=== PATIENT | female | born 1945 | race Caucasian/White ===

== ENCOUNTER 2017-06-06 07:01 | Day surgery (SDC) | payer MEDICARE, OTHER ==
[~2017-06-06] VITALS: Ht 152.4 cm; Wt 60.9 kg
[~2017-06-06 07:01] MED LIST: ASPI81 PO; BENA20 PO; FAMO20 PO; GABA-531 PO; GLIP5 PO; INSLAN SQ; LINA5TAB PO; SIMV-260 PO; SODIUM CHLORIDE 0.9% 0 ML IV ONE; SODIUM CHLORIDE 0.9% 1,000 ML IV ONE
[2017-06-06] MEDS ORDERED: LIDOCAINE HCL 4% 50 ML SOLUTION TP ONE (07:02)
[2017-06-06] MEDS ORDERED: BENZOCAINE 20% 50 MCG/SPRAY 57 GM TP ONE (07:02)
[2017-06-06] MEDS ORDERED: ALBUTEROL SULFATE 2.5 MG/0.5 ML NEB SOLUTION NEB ONE (07:02)
[2017-06-06] MEDS ORDERED: LIDOCAINE HCL 2% 5 ML JELLY TP ONE (07:02)
[2017-06-06] MEDS ORDERED: SODIUM CHLORIDE 0.9% 1,000 ML IV ONE (07:18)
[2017-06-06] MEDS ORDERED: MIDAZOLAM HCL 2 MG/2 ML VIAL ONE (07:43)
[2017-06-06] MEDS ORDERED: FentaNYL CITRATE-PF 100 MCG/2 ML VIAL ONE (07:43)
[2017-06-06 08:12] LABS: GLUCOSE,POINT OF CARE 176 MG/DL (70-110)
[2017-06-06] MEDS ORDERED: MethylPREDNISolone SOD SUCC 125 MG/2 ML VIAL IVP ONE (08:30)
[2017-06-06] MEDS ORDERED: MethylPREDNISolone SOD SUCC 125 MG/2 ML VIAL ONE (09:15)
[2017-06-06] MEDS ORDERED: OXYGEN THERAPY IH SCH (20:00)
== END 2017-06-06 10:25 | disposition home or self-care (01) ==
LOC: SURGERY 07:01
PROVIDERS: ATTEND Internal Medicine Critical Care Medicine
DX: J38.4 Edema of larynx (principal); B37.0 Candidal stomatitis; E11.9 Type 2 diabetes mellitus without complications; Z79.01 Long term (current) use of anticoagulants; Z79.4 Long term (current) use of insulin; Z90.710 Acquired absence of both cervix and uterus
CPT/HCPCS: 31623; 31624; 71010; 82962; 87015 ×2; 87070; 87101; 87205; 87220; 88108; 88312; 93005; J2250; J2930; J3010; J7030

== ENCOUNTER 2023-07-13 06:40 | Day surgery (SDC) | payer MEDICARE, OTHER ==
[~2023-07-13] VITALS: Ht 144.8 cm; Wt 81.8 kg
[~2023-07-13 06:40] MED LIST changes: +ALBU18HF7 IH; +ASPI-1444 PO; -ASPI81 PO; +ATOR20TA65 PO; +AZEL137S8 NASAL; +BECL10.62 IH; -BENA20 PO; +BENA5TAB40 PO; +CHOL200059 PO; +DOCU100C33 PO; +EMPA25TA3 PO; -GABA-531 PO; +GABA600T10 PO; -GLIP5 PO; +KETO10DR3 OU; +METF-1211 PO; +MONT-40 PO; +OMEG10005 PO; -SIMV-260 PO; -SODIUM CHLORIDE 0.9% 0 ML IV ONE
[2023-07-13] MEDS ORDERED: BENZOCAINE 20% 50 MCG/SPRAY 57 GM TP ONE (06:41)
[2023-07-13] MEDS ORDERED: MIDAZOLAM HCL 2 MG/2 ML VIAL ONE (07:43)
[2023-07-13] MEDS ORDERED: FentaNYL CITRATE PF 100 MCG/2 ML VIAL ONE (07:43)
[2023-07-13] MEDS ORDERED: SODIUM CHLORIDE 0.9% 1,000 ML ONE (08:12)
[2023-07-13 08:51] VITALS: PULSE 64; RESP 18; O2SAT 99
[2023-07-13] MEDS ORDERED: MethylPREDNISolone SOD SUCC 125 MG/2 ML VIAL ONE (09:13)
[2023-07-13] MEDS ORDERED: MethylPREDNISolone SOD SUCC 125 MG/2 ML VIAL IVP ONE (09:30)
== END 2023-07-13 10:35 | disposition home or self-care (01) ==
LOC: SURGERY 06:40
PROVIDERS: ATTEND Internal Medicine Critical Care Medicine
DX: R91.1 Solitary pulmonary nodule (principal); R05.3 Chronic cough; J98.09 Other diseases of bronchus, not elsewhere classified; J98.8 Other specified respiratory disorders; I51.9 Heart disease, unspecified; E11.9 Type 2 diabetes mellitus without complications; Z79.899 Other long term (current) drug therapy
CPT/HCPCS: 87206; 87101; 87220; 87070; 88108; 31623; 31624; 71045; 87015; J3010; J2250; J2930; J7030